=== PATIENT | male | born 1985 | race African-American/Black ===

== ENCOUNTER 2016-07-02 18:04 | Emergency (ER) | payer BC ==
[~2016-07-02] VITALS: Ht 172.7 cm; Wt 81.6 kg
[~2016-07-02 18:04] MED LIST: CYCL10TA2 PO; DICY20TA3 PO; DICY20TA30 PO; FAMO20TA5 PO; HYDR-971 PO; NAPR500T PO; OMEP20TA PO; OMEP40CA5 PO; ONDA4TAB10 PO; ONDA4TAB10 SL; ONDA4TAB7 PO; PENI500T PO; PROM25TA10 PO
[2016-07-02 21:11] VITALS: BP 140/77
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
== END 2016-07-02 21:45 | disposition home or self-care (01) ==
LOC: ER 18:04
DX: R20.2 Paresthesia of skin (principal)
CPT/HCPCS: 99281

== ENCOUNTER 2016-08-25 08:46 | Emergency (ER) | payer BC ==
[~2016-08-25] VITALS: Ht 172.7 cm; Wt 81.6 kg
[2016-08-25 09:15] VITALS: BP 132/78
[2016-08-25] MEDS ORDERED: PRED50TA PO (09:36)
[2016-08-25] MEDS ORDERED: FLUT9.9S NS (09:36)
[2016-08-25] MEDS ORDERED: AMOX1TAB61 PO (09:36)
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
== END 2016-08-25 09:41 | disposition home or self-care (01) ==
LOC: ER 08:46
DX: J01.10 Acute frontal sinusitis, unspecified (principal); K21.9 Gastro-esophageal reflux disease without esophagitis
CPT/HCPCS: 99283

== ENCOUNTER 2017-03-08 10:22 | Emergency (ER) | payer SELFPAY ==
[~2017-03-08] VITALS: Ht 172.7 cm; Wt 81.6 kg
[~2017-03-08 10:22] MED LIST changes: +AMOX1TAB61 PO; +FLUT9.9S NS; -OMEP20TA PO; +OMEP20TA8 PO; +PRED50TA PO
[2017-03-08 11:00] VITALS: BP 120/67
[2017-03-08] MEDS ORDERED: NAPR500T PO (11:12)
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
== END 2017-03-08 11:30 | disposition home or self-care (01) ==
LOC: ER 10:22
DX: S46.212A Strain of muscle, fascia and tendon of other parts of biceps, left arm, initial encounter (principal); S46.312A Strain of muscle, fascia and tendon of triceps, left arm, initial encounter; K21.9 Gastro-esophageal reflux disease without esophagitis; X58.XXXA Exposure to other specified factors, initial encounter; Y93.89 Activity, other specified; Y92.89 Other specified places as the place of occurrence of the external cause; Y99.8 Other external cause status
CPT/HCPCS: 99282

== ENCOUNTER 2017-06-14 23:09 | Emergency (ER) | payer SELFPAY ==
[~2017-06-14] VITALS: Ht 170.2 cm; Wt 80.7 kg
[~2017-06-14 23:09] MED LIST changes: +NAPR-683 PO; -NAPR500T PO
[2017-06-14 23:15] VITALS: BP 126/73
[2017-06-14] MEDS ORDERED: AMOX500C PO (23:50)
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
[2017-06-15 06:47] LABS: NEGATIVE OBC STREP NEG; POSITIVE OBC STREP POS
== END 2017-06-15 00:05 | disposition home or self-care (01) ==
LOC: ER 23:09
DX: H66.92 Otitis media, unspecified, left ear (principal); K21.9 Gastro-esophageal reflux disease without esophagitis
CPT/HCPCS: 87070; 87880; 99284

== ENCOUNTER 2017-09-26 09:20 | Emergency (ER) | payer SELFPAY ==
[2017-09-26] MEDS ORDERED: FAMOTIDINE 20 MG TABLET. PO (09:45)
[2017-09-26] MEDS ORDERED: ONDANSETRON ODT 4 MG TAB.RAPDIS. PO (09:45)
[2017-09-26] MEDS: ONDANSETRON PF 4 MG/2 ML VIAL. IV (10:07)
[2017-09-26] MEDS: KETOROLAC 30 MG/ML INJ. IV (10:08)
[2017-09-26] MEDS: FAMOTIDINE 20 MG/2 ML VIAL IVP (10:08)
== END 2017-09-26 10:46 | disposition home or self-care (01) ==
LOC: ER 09:20
DX: K21.9 Gastro-esophageal reflux disease without esophagitis (principal); F17.200 Nicotine dependence, unspecified, uncomplicated; F10.20 Alcohol dependence, uncomplicated
CPT/HCPCS: 71046; 93005; 96374; 96375; 99284-25; J1885; J2405; S0028

== ENCOUNTER 2017-11-26 05:15 | Emergency (ER) | payer SELFPAY ==
[2017-11-26] MEDS: ASPIRIN CHEWABLE 81 MG TABLET. PO (05:44)
[2017-11-26 05:45] LABS: ADD MAN DIFF? NO
[2017-11-26 05:48] LABS: BASO % 1 % (0-3); EOS # 0.2 x10^3/uL (0.0-0.7); EOS % 2 % (0-3); HEMATOCRIT 42.1 % (39.0-53.0); HEMOGLOBIN 14.7 g/dL (13.0-17.5); LYMPH % 24 % (24-48); MEAN CORPUSCULAR HEMOGLOBIN 31 pg (25-35); MEAN CORPUSCULAR HGB CONC 35 g/dL (31-37); MEAN CORPUSCULAR VOLUME 89 fL (79-100); MONO # 0.7 x10^3/uL (0.0-1.1); MONO % 8 % (0-9); NEUT # 5.6 x10^3uL (1.8-7.7); NEUT % 65 % (31-73); PLATELET COUNT 230 x10^3/uL (140-400); RED BLOOD COUNT 4.74 x10^6/uL (4.30-5.70); RED CELL DISTRIBUTION WIDTH 12.8 % (11.5-14.5); WHITE BLOOD COUNT 8.6 x10^3/uL (4.0-11.0)
[2017-11-26 05:58] LABS: ANION GAP 13 (6-14); BLOOD UREA NITROGEN 14 mg/dL (8-26); BUN/CREATININE RATIO 18 (6-20); CALCIUM 8.9 mg/dL (8.5-10.1); CARBON DIOXIDE 23 mmol/L (21-32); CHLORIDE 99 mmol/L (98-107); CREATININE 0.8 mg/dL (0.7-1.3); GFR 137.3; GLUCOSE 89 mg/dL (70-99); POTASSIUM 3.9 mmol/L (3.5-5.1); SODIUM 135 mmol/L (136-145)
[2017-11-26 06:04] LABS: ALBUMIN 4.1 g/dL (3.4-5.0); ALBUMIN/GLOBULIN RATIO 1.2 (1.0-1.7); ALK PHOS 69 U/L (46-116); ALT (SGPT) 31 U/L (16-63); AST (SGOT) 24 U/L (15-37); TOTAL BILIRUBIN 0.5 mg/dL (0.2-1.0); TOTAL PROTEIN 7.5 g/dL (6.4-8.2)
[2017-11-26 06:08] LABS: TROPONINI < 0.017 ng/mL (0.000-0.055)
== END 2017-11-26 06:38 | disposition home or self-care (01) ==
LOC: ER 05:15
DX: R07.89 Other chest pain (principal); K21.9 Gastro-esophageal reflux disease without esophagitis
CPT/HCPCS: 36415; 71045; 80053; 84484; 85025; 93005; 99285-25

== ENCOUNTER 2018-06-05 00:19 | Emergency (ER) | payer SELFPAY ==
[~2018-06-05] VITALS: Ht 172.7 cm; Wt 78.5 kg
[~2018-06-05 00:19] MED LIST changes: +AMOX500C PO; +HYDR-3164 PO; -HYDR-971 PO; +OMEP20TA63 PO
[2018-06-05 00:20] VITALS: BP 111/69
[2018-06-05] MEDS ORDERED: BENZ100C PO (00:43)
[2018-06-05] MEDS ORDERED: VENTOLIN HFA18 GM INH (00:43)
[2018-06-05] MEDS ORDERED: PRED50TA PO (00:43)
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
== END 2018-06-05 00:53 | disposition home or self-care (01) ==
LOC: ER 00:19
DX: J20.9 Acute bronchitis, unspecified (principal); J06.9 Acute upper respiratory infection, unspecified; F17.200 Nicotine dependence, unspecified, uncomplicated; K21.9 Gastro-esophageal reflux disease without esophagitis; F10.20 Alcohol dependence, uncomplicated; Y90.9 Presence of alcohol in blood, level not specified
CPT/HCPCS: 99283

== ENCOUNTER 2018-09-05 12:58 | Emergency (ER) | payer OTHER ==
[2018-07-11 00:35] VITALS: BP 115/78
[~2018-09-05 12:58] MED LIST changes: +BENZ100C PO; +VENTOLIN HFA18 GM INH
== END 2018-09-05 15:00 | disposition left against medical advice (07) ==
LOC: ER 12:58
DX: R07.89 Other chest pain (principal); Z53.21 Procedure and treatment not carried out due to patient leaving prior to being seen by health care provider